=== PATIENT | male | born 1965 | race Caucasian/White ===

== ENCOUNTER 2020-10-08 12:39 | Emergency (ER) | payer OTHER ==
[2020-10-08 14:52] LABS: BASOPHIL 0.7 % (0-2); EOSINOPHIL 0.1 % (0-5); HCT 45.8 % (42.0-52.0); HGB 15.5 g/dl (13.2-18.0); LYMPHOCYTE 9.9 % (15-48); MCH 30.1 pg (25.0-31.0); MCHC 33.8 g/dL (32.0-36.0); MCV 88.9 fL (78.0-100.0); MONOCYTE 3.8 % (0-12); MPV 10.8 fL (6.0-9.5); NEUTROPHIL 85.1 % (41-80); NRBC 0; PLT 376 K/uL (150-400); RBC 5.15 M/uL (4.70-6.00); RDW 13.5 % (11.5-14.0); WBC 12.1 K/uL (4.0-10.5)
[2020-10-08 14:54] LABS: BILIRUBIN - TOTAL 0.3 mg/dL (0.2-1.0); CREATININE 0.88 mg/dL (0.67-1.17); GLOBULIN (CALCULATION) 3.3 g/dL; POTASSIUM 3.8 mmol/L (3.5-5.1); TOTAL PROTEIN 7.3 g/dL (6.4-8.2)
[2020-10-08 15:20] LABS: BILIRUBIN NEGATIVE (NEGATIVE); BLOOD NEGATIVE Ery/uL (NEGATIVE); CLARITY CLEAR (CLEAR); COLOR YELLOW (YELLOW); GLUCOSE (U) NORMAL (NORMAL); LEUKOCYTES NEGATIVE Leu/uL (NEGATIVE); NITRITE NEGATIVE (NEGATIVE); PROTEIN NEGATIVE (NEGATIVE); SPECIFIC GRAVITY 1.025 (1.001-1.030); UROBILINOGEN 0.2 mg/dL (0.2-1.0)
[2020-10-08] MEDS ORDERED: PRILOSEC20 MG PO (22:19)
== END 2020-10-08 16:24 | disposition home or self-care (01) ==
LOC: FER 12:39
PROVIDERS: Emergency Medicine
DX: R10.32 Left lower quadrant pain (principal); R10.12 Left upper quadrant pain; R11.0 Nausea; I10 Essential (primary) hypertension; F17.210 Nicotine dependence, cigarettes, uncomplicated
CPT/HCPCS: 36415; 80053; 81003; 82150; 83690; 84484; 85025; 93005; J1885; J2405; J7030; Q9967

== ENCOUNTER 2020-10-08 20:41 | Emergency (ER) | payer OTHER ==
[2020-10-08 21:51] LABS: BASOPHIL 0.7 % (0-2); EOSINOPHIL 1.1 % (0-5); HCT 45.5 % (42.0-52.0); HGB 15.5 g/dl (13.2-18.0); LYMPHOCYTE 24.5 % (15-48); MCH 30.3 pg (25.0-31.0); MCHC 34.1 g/dL (32.0-36.0); MONOCYTE 9.9 % (0-12); NEUTROPHIL 63.6 % (41-80); NRBC 0; PLT 358 K/uL (150-400); RBC 5.11 M/uL (4.70-6.00); RDW 13.5 % (11.5-14.0)
[2020-10-08 22:15] LABS: ALBUMIN 3.8 g/dL (3.4-5.0); BILIRUBIN - TOTAL 0.3 mg/dL (0.2-1.0); BUN/CREAT RATIO (CALC) 13.2 RATIO; CREATININE 0.91 mg/dL (0.67-1.17); GLOBULIN (CALCULATION) 3.2 g/dL; POTASSIUM 3.9 mmol/L (3.5-5.1)
[2020-10-08 22:19] LABS: LACTIC ACID 0.9 mmol/L (0.4-1.9)
[2020-10-08] MEDS ORDERED: PRILOSEC20 MG PO (22:19)
== END 2020-10-08 23:04 | disposition home or self-care (01) ==
LOC: FER 20:41
PROVIDERS: Nurse Practitioner Family
DX: K21.9 Gastro-esophageal reflux disease without esophagitis (principal); R10.84 Generalized abdominal pain; R11.0 Nausea; I10 Essential (primary) hypertension; F17.210 Nicotine dependence, cigarettes, uncomplicated; Z88.8 Allergy status to other drugs, medicaments and biological substances
CPT/HCPCS: 36415; 76705; 80053; 83605; 85025; J2270; J2405; J7030